=== PATIENT | female | born 1950 | race Hispanic/Latino ===

== ENCOUNTER 2017-08-12 11:24 | Emergency (ER) | payer MEDICARE ==
[~2017-08-12 11:24] MED LIST: ASPI-555 PO; ATOR20TA65 PO; FOLI1TAB85 PO; GABA300S PO; LEVO50TA11 PO; MIDO10TA PO; SEVE800T7 PO; VIT E PO
[2017-08-12] MEDS ORDERED: DEXAMETHASONE SOD PHOSPHATE 10MG/ML 1ML VIAL ONE (12:35)
[2017-08-12] MEDS ORDERED: ACETAMINOPHEN-CODEINE 300/30MG TAB ONE (12:36)
== END 2017-08-12 14:18 | disposition home or self-care (01) ==
LOC: EDH 11:24
DX: M25.512 Pain in left shoulder (principal); I12.0 Hypertensive chronic kidney disease with stage 5 chronic kidney disease or end stage renal disease; E11.22 Type 2 diabetes mellitus with diabetic chronic kidney disease; N18.6 End stage renal disease; F41.9 Anxiety disorder, unspecified; Z88.6 Allergy status to analgesic agent; Z99.2 Dependence on renal dialysis; Z95.1 Presence of aortocoronary bypass graft
CPT/HCPCS: 73030; 96372; 99284; J1100

== ENCOUNTER 2017-08-14 12:45 | Day surgery (SDC) | payer MEDICARE ==
[~2017-08-14] VITALS: Ht 147.3 cm; Wt 96.9 kg
[2017-08-14 13:15] VITALS: BP_SYST 142; BP_DIAS 51; BP_DIAS 57
[2017-08-14 13:35] LABS: BASOPHILS % (AUTO) 0.5 % (0.0-5.0); EOSINOPHILS % (AUTO) 0.2 % (0.0-8.0); HEMATOCRIT 32.9 % (36-48); LYMPHOCYTES % (AUTO) 5.6 % (21.0-51.0); MEAN CORPUSCULAR HGB CONC 33.2 g/dL (32.0-36.0); MEAN CORPUSCULAR VOLUME 99.6 fL (79-99); MONOCYTES % (AUTO) 7.4 % (3.0-13.0); NEUTROPHILS % (AUTO) 86.3 % (40.0-77.0); PLATELET COUNT (AUTO) 248 K/uL (130-400); RED BLOOD CELL COUNT(AUTO) 3.31 MIL/uL (4.00-5.50); RED CELL DISTRIBUTION WIDTH 14.7 % (11.0-15.5); WHITE BLOOD COUNT (AUTO) 10.9 K/uL (4.8-10.8)
[2017-08-14 13:50] LABS: ALBUMIN 2.8 g/dL (3.5-5.0); BILIRUBIN,TOTAL 0.6 mg/dL (0.2-1.0); POTASSIUM 5.3 mmol/L (3.5-5.1); TOTAL PROTEIN, SERUM 8.8 g/dL (6.0-8.3)
[2017-08-14 13:52] LABS: CREATININE 10.4 mg/dL (0.5-1.5)
[2017-08-14 13:58] LABS: INR 0.99 (0.85-1.15); PROTHROMBIN TIME 10.4 SEC (9.6-11.6)
[2017-08-14] MEDS ORDERED: LEVO75TA10 PO (14:03)
[2017-08-14] MEDS ORDERED: GABA-531 PO (14:03)
[2017-08-14] MEDS ORDERED: ACET-2743 PO (14:03)
[2017-08-14] MEDS ORDERED: MIDO10TA PO (14:03)
[2017-08-14] MEDS ORDERED: TYL3 PO (14:03)
[2017-08-14] MEDS ORDERED: SEVE800T7 PO (14:03)
[2017-08-14] MEDS ORDERED: LIDOCAINE HCL 1% MDV 50ML VIAL ONE (14:04)
[2017-08-14] MEDS ORDERED: SODIUM CHLORIDE 0.9% 1000ML 1,000 ML IV ONE (14:14)
[2017-08-14] MEDS ORDERED: PANT40TA PO (14:16)
[2017-08-14] MEDS ORDERED: ISOVUE-370 50ML VIAL IV ONE (14:28)
[2017-08-14] MEDS ORDERED: MIDAZOLAM HCL 1 MG/ML 2ML VIAL ONE (14:40)
[2017-08-14] MEDS ORDERED: MORPHINE SULFATE 4 MG/1ML SYG ONE (14:42)
[2017-08-14 15:25] VITALS: BP 118/53
[2017-08-14 15:34] VITALS: BP 118/53
[2017-08-14 15:40] VITALS: BP 118/53
[2017-08-14 16:15] VITALS: BP 118/53
== END 2017-08-14 16:30 | disposition home or self-care (01) ==
LOC: DAH 12:45
PROVIDERS: ATTEND Internal Medicine Nephrology
DX: T82.49XA Other complication of vascular dialysis catheter, initial encounter (principal)
CPT/HCPCS: 36415; 36581; 36596; 75902; 80053; 85025; 85610; A4606; C1725; C1750; C1769; J1644; J2270; J3490; J7030; Q9967; 75820; J2250

== ENCOUNTER 2017-08-26 14:00 | Inpatient (IN) | payer MEDICARE ==
[~2017-08-26] VITALS: Ht 147.3 cm; Wt 92.5 kg
[~2017-08-26 14:00] MED LIST changes: +ACET-2743 PO; +GABA-531 PO; -GABA300S PO; -LEVO50TA11 PO; +LEVO75TA10 PO; +PANT40TA PO; +TYL3 PO
[2017-08-26 16:07] LABS: BASOPHILS % (AUTO) 0.2 % (0.0-5.0); EOSINOPHILS % (AUTO) 0.2 % (0.0-8.0); HEMATOCRIT 30.8 % (36-48); LYMPHOCYTES % (AUTO) 2.6 % (21.0-51.0); MEAN CORPUSCULAR HEMOGLOBIN 32.3 pg (27.0-33.0); MEAN CORPUSCULAR HGB CONC 33.2 g/dL (32.0-36.0); MEAN CORPUSCULAR VOLUME 97.3 fL (79-99); MONOCYTES % (AUTO) 6.5 % (3.0-13.0); NEUTROPHILS % (AUTO) 90.5 % (40.0-77.0); NUCLEATED RED BLOOD CELLS 0.1 % (0.0-0.19); PLATELET COUNT (AUTO) 195 K/uL (130-400); RED BLOOD CELL COUNT(AUTO) 3.17 MIL/uL (4.00-5.50); RED CELL DISTRIBUTION WIDTH 15.3 % (11.0-15.5); WHITE BLOOD COUNT (AUTO) 14.2 K/uL (4.8-10.8)
[2017-08-26 16:17] LABS: INR 1.18 (0.85-1.15); PARTIAL THROMBOPLASTIN TIME 36.1 SEC (26.3-35.5); PROTHROMBIN TIME 12.3 SEC (9.6-11.6)
[2017-08-26 16:30] LABS: CREATINE KINASE MB 1.5 ng/mL (0.5-3.6)
[2017-08-26 16:42] LABS: CRP QUANTITATIVE 406.3 mg/L (0.00-9.0)
[2017-08-26 16:59] LABS: CREATININE 7.4 mg/dL (0.5-1.5); POTASSIUM 4.3 mmol/L (3.5-5.1)
[2017-08-26 17:08] LABS: ALBUMIN 2.3 g/dL (3.5-5.0); BILIRUBIN,TOTAL 0.4 mg/dL (0.2-1.0); TOTAL PROTEIN, SERUM 7.9 g/dL (6.0-8.3)
[2017-08-26] MEDS ORDERED: ZOSYN 3.375GM+NS 50ML 50 ML IV ONE (19:44)
[2017-08-26] MEDS ORDERED: VANCOMYCIN 1GM+NS 250ML 250 ML IV ONE (19:57)
[2017-08-26] MEDS ORDERED: SODIUM CHLORIDE 0.9% 10 ML VIAL IVP SCH (20:15)
[2017-08-26] MEDS ORDERED: ONDANSETRON HCL 4 MG/2 ML VIAL IVP PRN (20:15)
[2017-08-26 21:30] VITALS: BP 128/67
[2017-08-26] MEDS ORDERED: GLUCAGON 1MG KIT 1 MG ML IM PRN (22:15)
[2017-08-26] MEDS ORDERED: DEXTROSE 50%-WATER 50 ML DISP.SYRIN IV PRN (22:15)
[2017-08-26 23:00] VITALS: BP 127/61
[2017-08-27 03:00] VITALS: BP 115/54
[2017-08-27 06:17] LABS: MEAN CORPUSCULAR HEMOGLOBIN 32.1 pg (27.0-33.0); MEAN CORPUSCULAR HGB CONC 33.2 g/dL (32.0-36.0); MEAN CORPUSCULAR VOLUME 96.7 fL (79-99); PLATELET COUNT (AUTO) 192 K/uL (130-400); WHITE BLOOD COUNT (AUTO) 12.1 K/uL (4.8-10.8)
[2017-08-27 06:41] LABS: ALBUMIN 1.9 g/dL (3.5-5.0); BILIRUBIN,TOTAL 0.5 mg/dL (0.2-1.0); POTASSIUM 4.5 mmol/L (3.5-5.1); TOTAL PROTEIN, SERUM 7.1 g/dL (6.0-8.3)
[2017-08-27 06:59] LABS: CREATININE 8.4 mg/dL (0.5-1.5)
[2017-08-27 08:00] VITALS: BP 133/64
[2017-08-27] MEDS: FAMOTIDINE/PF 20 MG/2 ML VIAL IV SCH (08:19)
[2017-08-27] MEDS: INSULIN HUMULIN R 100 UNIT/ML 3ML SQ SCH ×4 (08:21→22:29)
[2017-08-27] MEDS ORDERED: ZOSYN 3.375GM+NS 50ML 50 ML IV SCH (09:00)
[2017-08-27] MEDS ORDERED: VANCOMYCIN PROTOCOL PER PHARMACY IV SCH (09:15)
[2017-08-27] MEDS ORDERED: COMPOUND IV REFRIGERATED 1 EACH IVSOLN MISC PRN (09:15)
[2017-08-27] MEDS: ZOSYN 3.375GM+NS 50ML 50 ML IV SCH ×2 (09:19→20:20)
[2017-08-27] MEDS: ACETAMINOPHEN 325 MG TAB PO PRN ×2 (09:33→20:20)
[2017-08-27] MEDS ORDERED: VANCOMYCIN 1.5 GM in SODIUM CHLORIDE 0.9% 250 ML IV SCH (10:00)
[2017-08-27 11:00] VITALS: BP 108/71
[2017-08-27] MEDS: HEPARIN SODIUM 5000UNIT/ML 1ML VIAL SQ SCH ×2 (11:50→22:30)
[2017-08-27 16:00] VITALS: BP 103/72
[2017-08-27 19:20] VITALS: BP 126/74
[2017-08-28] VITALS: BP 104/44
[2017-08-28 04:00] VITALS: BP 108/55
[2017-08-28] MEDS: ACETAMINOPHEN 325 MG TAB PO PRN ×3 (05:49→21:19)
[2017-08-28] MEDS: INSULIN HUMULIN R 100 UNIT/ML 3ML SQ SCH ×4 (06:21→21:00)
[2017-08-28 08:00] VITALS: BP 108/42
[2017-08-28] MEDS ORDERED: MIDODRINE HCL 5 MG TABLET ONE (09:39)
[2017-08-28] MEDS ORDERED: VANCOMYCIN 1.5 GM in SODIUM CHLORIDE 0.9% 250 ML IV SCH (09:58)
[2017-08-28] MEDS ORDERED: SODIUM CHLORIDE 0.9% 1000ML 1,000 ML IV PRN (10:00)
[2017-08-28] MEDS ORDERED: 0.9% SODIUM CHLORIDE 250 ML IV BAG IV PRN (10:00)
[2017-08-28] MEDS: HEPARIN SODIUM 5000UNIT/ML 1ML VIAL SQ SCH ×2 (10:45→23:53)
[2017-08-28 11:00] VITALS: BP 144/52
[2017-08-28] MEDS: ZOSYN 3.375GM+NS 50ML 50 ML IV SCH ×2 (13:16→21:18)
[2017-08-28] MEDS: FAMOTIDINE/PF 20 MG/2 ML VIAL IV SCH (13:16)
[2017-08-28] MEDS: MIDODRINE HCL 5 MG TABLET PO SCH ×2 (13:18→21:18)
[2017-08-28] MEDS ORDERED: OCTYL 2-CYANOACRYLATE 1 EACH TP ONE (13:57)
[2017-08-28] MEDS ORDERED: LIDOCAINE 1%-EPI 1:100,000 20 ML VIAL IJ ONE (13:58)
[2017-08-28] MEDS ORDERED: LIDOCAINE HCL 2% 20ML ONE (13:58)
[2017-08-28 16:00] VITALS: BP 128/69
[2017-08-28 19:00] VITALS: BP 107/57
[2017-08-29] VITALS (7 sets, daily range): BP systolic 95–161; BP diastolic 56–72
[2017-08-29 05:13] LABS: HEMATOCRIT 25.9 % (36-48); MEAN CORPUSCULAR HEMOGLOBIN 31.8 pg (27.0-33.0); MEAN CORPUSCULAR HGB CONC 32.8 g/dL (32.0-36.0); MEAN CORPUSCULAR VOLUME 96.9 fL (79-99); NUCLEATED RED BLOOD CELLS 0.1 % (0.0-0.19); PLATELET COUNT (AUTO) 166 K/uL (130-400); RED BLOOD CELL COUNT(AUTO) 2.67 MIL/uL (4.00-5.50); WHITE BLOOD COUNT (AUTO) 12.6 K/uL (4.8-10.8)
[2017-08-29 05:22] LABS: POTASSIUM 5.4 mmol/L (3.5-5.1)
[2017-08-29 05:27] LABS: CREATININE 10.6 mg/dL (0.5-1.5)
[2017-08-29 05:28] LABS: EOSINOPHILS % (MANUAL) 3 % (1-6); LYMPHOCYTES % (MANUAL) 15 % (22-44); MAN.DIFF COMMENT-IMPRESSION MANUAL DIF; MONOCYTES % (MANUAL) 9 % (2-9); SEGMENTED NEUTROPHILS % 73 % (40-70)
[2017-08-29 05:29] LABS: PLATELET MORPHOLOGY COMMENT ADEQUATE
[2017-08-29] MEDS: INSULIN HUMULIN R 100 UNIT/ML 3ML SQ SCH ×4 (07:27→21:00)
[2017-08-29] MEDS: MIDODRINE HCL 5 MG TABLET PO SCH ×3 (08:42→21:00)
[2017-08-29] MEDS: ZOSYN 3.375GM+NS 50ML 50 ML IV SCH (08:43)
[2017-08-29] MEDS: ACETAMINOPHEN 325 MG TAB PO PRN ×2 (08:43→18:26)
[2017-08-29] MEDS: FAMOTIDINE/PF 20 MG/2 ML VIAL IV SCH (08:43)
[2017-08-29] MEDS ORDERED: SODIUM POLYSTYRENE SULFONATE 15 GM/60 ML ML PO SCH (09:15)
[2017-08-29] MEDS: HEPARIN SODIUM 5000UNIT/ML 1ML VIAL SQ SCH ×2 (10:32→22:35)
[2017-08-30] VITALS (11 sets, daily range): BP systolic 95–145; BP diastolic 41–81
[2017-08-30 05:11] LABS: HEMATOCRIT 24.7 % (36-48); MEAN CORPUSCULAR HEMOGLOBIN 32.6 pg (27.0-33.0); MEAN CORPUSCULAR HGB CONC 34.2 g/dL (32.0-36.0); MEAN CORPUSCULAR VOLUME 95.4 fL (79-99); PLATELET COUNT (AUTO) 174 K/uL (130-400); RED BLOOD CELL COUNT(AUTO) 2.59 MIL/uL (4.00-5.50); RED CELL DISTRIBUTION WIDTH 15.3 % (11.0-15.5); WHITE BLOOD COUNT (AUTO) 9.3 K/uL (4.8-10.8)
[2017-08-30 05:24] LABS: POTASSIUM 5.1 mmol/L (3.5-5.1)
[2017-08-30 05:31] LABS: CREATININE 11.7 mg/dL (0.5-1.5)
[2017-08-30] MEDS: INSULIN HUMULIN R 100 UNIT/ML 3ML SQ SCH ×4 (07:30→23:34)
[2017-08-30] MEDS: FAMOTIDINE/PF 20 MG/2 ML VIAL IV SCH (07:49)
[2017-08-30] MEDS: MIDODRINE HCL 5 MG TABLET PO SCH ×3 (07:49→23:21)
[2017-08-30] MEDS: HEPARIN SODIUM 5000UNIT/ML 1ML VIAL SQ SCH ×2 (07:49→23:32)
[2017-08-30] MEDS ORDERED: HEPARIN SODIUM 1000UNIT/ML 10ML VIAL ONE (08:48)
[2017-08-30] MEDS ORDERED: LIDOCAINE HCL 2% 20ML ONE (08:48)
[2017-08-30] MEDS ORDERED: EPOETIN ALFA 20,000 UNIT/ML VIAL SQ SCH (09:45)
[2017-08-30] MEDS ORDERED: ALBUMIN (HUMAN) 25% 100 ML IV PRN (11:30)
[2017-08-30] MEDS: HEPARIN SODIUM 5000UNIT/ML 1ML VIAL IJ PRN (14:09)
[2017-08-31 05:13] VITALS: BP 124/40
[2017-08-31] MEDS: INSULIN HUMULIN R 100 UNIT/ML 3ML SQ SCH ×4 (05:49→22:41)
[2017-08-31 06:14] LABS: HEMATOCRIT 25.1 % (36-48); MEAN CORPUSCULAR HEMOGLOBIN 33.1 pg (27.0-33.0); MEAN CORPUSCULAR HGB CONC 35.2 g/dL (32.0-36.0); MEAN CORPUSCULAR VOLUME 94.1 fL (79-99); PLATELET COUNT (AUTO) 213 K/uL (130-400); RED BLOOD CELL COUNT(AUTO) 2.67 MIL/uL (4.00-5.50); RED CELL DISTRIBUTION WIDTH 14.8 % (11.0-15.5); WHITE BLOOD COUNT (AUTO) 8.4 K/uL (4.8-10.8)
[2017-08-31 06:25] LABS: POTASSIUM 3.9 mmol/L (3.5-5.1)
[2017-08-31 06:30] LABS: CREATININE 8.2 mg/dL (0.5-1.5)
[2017-08-31 07:04] LABS: LYMPHOCYTES % (MANUAL) 12 % (22-44); MONOCYTES % (MANUAL) 8 % (2-9); SEGMENTED NEUTROPHILS % 80 % (40-70)
[2017-08-31 07:08] LABS: MAN.DIFF COMMENT-IMPRESSION MANUAL DIFFERENTIAL; PLATELET MORPHOLOGY COMMENT ADEQUATE
[2017-08-31 08:00] VITALS: BP 115/51
[2017-08-31] MEDS: FAMOTIDINE/PF 20 MG/2 ML VIAL IV SCH (09:52)
[2017-08-31] MEDS: MIDODRINE HCL 5 MG TABLET PO SCH ×3 (09:52→22:37)
[2017-08-31] MEDS: ACETAMINOPHEN 325 MG TAB PO PRN (10:04)
[2017-08-31 11:42] VITALS: BP 118/53
[2017-08-31] MEDS: HEPARIN SODIUM 5000UNIT/ML 1ML VIAL SQ SCH ×2 (12:41→22:40)
[2017-08-31] MEDS ORDERED: PHARMACY COMMUNICATION MISC SCH (14:45)
[2017-08-31] MEDS ORDERED: KETOROLAC TROMETHAMINE 15MG/ML IV SCH (15:00)
[2017-08-31 16:00] VITALS: BP 159/84
[2017-08-31] MEDS ORDERED: GENTAMICIN PROTOCOL PER PHARMACY IV SCH (16:15)
[2017-08-31] MEDS: GENTAMICIN 80 MG/NS 100 ML PB 100 ML IV SCH (18:27)
[2017-08-31 19:15] VITALS: BP 117/61
[2017-09-01 00:15] VITALS: BP 117/84
[2017-09-01 04:15] VITALS: BP 140/54
[2017-09-01] MEDS: HEPARIN SODIUM 5000UNIT/ML 1ML VIAL IJ PRN (04:39)
[2017-09-01 05:02] LABS: BASOPHILS % (AUTO) 0.9 % (0.0-5.0); HEMATOCRIT 28.2 % (36-48); LYMPHOCYTES % (AUTO) 16.2 % (21.0-51.0); MEAN CORPUSCULAR HEMOGLOBIN 31.7 pg (27.0-33.0); MEAN CORPUSCULAR HGB CONC 33.2 g/dL (32.0-36.0); MEAN CORPUSCULAR VOLUME 95.3 fL (79-99); MONOCYTES % (AUTO) 7.6 % (3.0-13.0); NEUTROPHILS % (AUTO) 73.3 % (40.0-77.0); NUCLEATED RED BLOOD CELLS 0.1 % (0.0-0.19); PLATELET COUNT (AUTO) 248 K/uL (130-400); RED BLOOD CELL COUNT(AUTO) 2.96 MIL/uL (4.00-5.50); RED CELL DISTRIBUTION WIDTH 15.4 % (11.0-15.5); WHITE BLOOD COUNT (AUTO) 7.1 K/uL (4.8-10.8)
[2017-09-01 05:15] LABS: CREATININE 5.2 mg/dL (0.5-1.5)
[2017-09-01 05:18] LABS: POTASSIUM 2.9 mmol/L (3.5-5.1)
[2017-09-01] MEDS: INSULIN HUMULIN R 100 UNIT/ML 3ML SQ SCH ×4 (06:45→21:00)
[2017-09-01 08:00] VITALS: BP 101/44
[2017-09-01] MEDS: MIDODRINE HCL 5 MG TABLET PO SCH ×3 (10:30→21:52)
[2017-09-01] MEDS: FAMOTIDINE/PF 20 MG/2 ML VIAL IV SCH (10:31)
[2017-09-01 12:00] VITALS: BP 143/63
[2017-09-01] MEDS: HEPARIN SODIUM 5000UNIT/ML 1ML VIAL SQ SCH ×2 (13:14→22:07)
[2017-09-01] MEDS: ACETAMINOPHEN 325 MG TAB PO PRN (15:58)
[2017-09-01 16:00] VITALS: BP 144/66
[2017-09-01 20:38] VITALS: BP 110/57
[2017-09-02 00:36] VITALS: BP 107/71
[2017-09-02] MEDS: ACETAMINOPHEN 325 MG TAB PO PRN ×2 (02:30→09:12)
[2017-09-02 06:15] VITALS: BP 117/56
[2017-09-02 06:31] LABS: HEMATOCRIT 24.2 % (36-48); MEAN CORPUSCULAR HEMOGLOBIN 32.2 pg (27.0-33.0); MEAN CORPUSCULAR HGB CONC 33.1 g/dL (32.0-36.0); MEAN CORPUSCULAR VOLUME 97.5 fL (79-99); NUCLEATED RED BLOOD CELLS 0.1 % (0.0-0.19); PLATELET COUNT (AUTO) 244 K/uL (130-400); RED BLOOD CELL COUNT(AUTO) 2.48 MIL/uL (4.00-5.50); RED CELL DISTRIBUTION WIDTH 15.2 % (11.0-15.5); WHITE BLOOD COUNT (AUTO) 6.9 K/uL (4.8-10.8)
[2017-09-02 06:48] LABS: POTASSIUM 3.6 mmol/L (3.5-5.1)
[2017-09-02 07:05] LABS: CREATININE 8.2 mg/dL (0.5-1.5)
[2017-09-02] MEDS: INSULIN HUMULIN R 100 UNIT/ML 3ML SQ SCH ×4 (07:30→21:12)
[2017-09-02 08:29] VITALS: BP 128/64
[2017-09-02] MEDS: MIDODRINE HCL 5 MG TABLET PO SCH ×3 (09:05→21:10)
[2017-09-02] MEDS: FAMOTIDINE/PF 20 MG/2 ML VIAL IV SCH (09:05)
[2017-09-02 12:07] VITALS: BP 139/65
[2017-09-02] MEDS: HEPARIN SODIUM 5000UNIT/ML 1ML VIAL SQ SCH ×2 (13:40→23:32)
[2017-09-02 15:25] VITALS: BP 105/48
[2017-09-02 19:15] VITALS: BP 149/66
[2017-09-03] VITALS (7 sets, daily range): BP systolic 121–162; BP diastolic 56–78
[2017-09-03 06:10] LABS: BASOPHILS % (AUTO) 0.8 % (0.0-5.0); HEMATOCRIT 24.6 % (36-48); LYMPHOCYTES % (AUTO) 8.7 % (21.0-51.0); MEAN CORPUSCULAR HEMOGLOBIN 32.5 pg (27.0-33.0); MEAN CORPUSCULAR HGB CONC 34.1 g/dL (32.0-36.0); MEAN CORPUSCULAR VOLUME 95.5 fL (79-99); MONOCYTES % (AUTO) 6.3 % (3.0-13.0); NEUTROPHILS % (AUTO) 83.2 % (40.0-77.0); PLATELET COUNT (AUTO) 295 K/uL (130-400); RED BLOOD CELL COUNT(AUTO) 2.58 MIL/uL (4.00-5.50); RED CELL DISTRIBUTION WIDTH 15.5 % (11.0-15.5); WHITE BLOOD COUNT (AUTO) 8.7 K/uL (4.8-10.8)
[2017-09-03 06:24] LABS: INR 0.94 (0.85-1.15); PARTIAL THROMBOPLASTIN TIME 34.1 SEC (26.3-35.5); PROTHROMBIN TIME 9.9 SEC (9.6-11.6)
[2017-09-03 06:25] LABS: GENTAMICIN,TROUGH 0.8 mcg/mL (0.0-2.0); POTASSIUM 3.7 mmol/L (3.5-5.1)
[2017-09-03 06:29] LABS: CREATININE 9.7 mg/dL (0.5-1.5)
[2017-09-03] MEDS: INSULIN HUMULIN R 100 UNIT/ML 3ML SQ SCH ×4 (07:30→21:57)
[2017-09-03] MEDS: MIDODRINE HCL 5 MG TABLET PO SCH ×3 (08:20→21:49)
[2017-09-03] MEDS: GENTAMICIN 80 MG/NS 100 ML PB 100 ML IV SCH (08:20)
[2017-09-03] MEDS: ACETAMINOPHEN 325 MG TAB PO PRN ×2 (08:21→14:59)
[2017-09-03] MEDS: FAMOTIDINE/PF 20 MG/2 ML VIAL IV SCH (08:21)
[2017-09-03] MEDS: HEPARIN SODIUM 5000UNIT/ML 1ML VIAL SQ SCH ×2 (12:57→22:38)
[2017-09-04 03:27] VITALS: BP 130/51
[2017-09-04 04:32] LABS: HEMATOCRIT 24.3 % (36-48); MEAN CORPUSCULAR HEMOGLOBIN 33.4 pg (27.0-33.0); MEAN CORPUSCULAR HGB CONC 34.5 g/dL (32.0-36.0); MEAN CORPUSCULAR VOLUME 96.8 fL (79-99); PLATELET COUNT (AUTO) 310 K/uL (130-400); RED BLOOD CELL COUNT(AUTO) 2.51 MIL/uL (4.00-5.50); RED CELL DISTRIBUTION WIDTH 15.7 % (11.0-15.5); WHITE BLOOD COUNT (AUTO) 7.8 K/uL (4.8-10.8)
[2017-09-04 04:41] LABS: BAND NEUTROPHILS % (MANUAL) 3 % (0-2); BASOPHILS % (MANUAL) 1 % (0-2); EOSINOPHILS % (MANUAL) 7 % (1-6); LYMPHOCYTES % (MANUAL) 10 % (22-44); MONOCYTES % (MANUAL) 6 % (2-9); SEGMENTED NEUTROPHILS % 73 % (40-70)
[2017-09-04 04:42] LABS: MAN.DIFF COMMENT-IMPRESSION MANUAL DIFFERENTIAL; PHOSPHORUS 8.4 mg/dL (2.5-4.9); PLATELET MORPHOLOGY COMMENT ADEQUATE
[2017-09-04 04:43] LABS: INR 0.94 (0.85-1.15); PARTIAL THROMBOPLASTIN TIME 35.2 SEC (26.3-35.5); PROTHROMBIN TIME 9.9 SEC (9.6-11.6)
[2017-09-04 04:44] LABS: CREATININE 11.1 mg/dL (0.5-1.5)
[2017-09-04] MEDS: INSULIN HUMULIN R 100 UNIT/ML 3ML SQ SCH ×3 (05:44→16:24)
[2017-09-04] MEDS ORDERED: LIDOCAINE HCL 2% 20ML ONE (07:42)
[2017-09-04 08:24] VITALS: BP 119/64
[2017-09-04] MEDS ORDERED: ISOVUE-300 100 ML VIAL IV ONE (08:34)
[2017-09-04 09:40] VITALS: BP 141/73
[2017-09-04] MEDS: FAMOTIDINE/PF 20 MG/2 ML VIAL IV SCH (10:13)
[2017-09-04] MEDS: MIDODRINE HCL 5 MG TABLET PO SCH ×2 (10:18→14:00)
[2017-09-04] MEDS: ACETAMINOPHEN 325 MG TAB PO PRN (10:21)
[2017-09-04] MEDS: HEPARIN SODIUM 5000UNIT/ML 1ML VIAL SQ SCH (10:45)
[2017-09-04 11:45] VITALS: BP 134/64
[2017-09-04 11:48] VITALS: BP 134/64
[2017-09-04] MEDS ORDERED: BALS60OI TP (14:19)
[2017-09-04 16:48] VITALS: BP 151/85
== END 2017-09-04 18:10 | disposition home or self-care (01) | DRG 871 ==
LOC: EDH 14:00 → EDHIP 19:15 → 3BH 21:23 → 3CH 09-01 16:46 → 3BH 09-02 08:08
PROVIDERS: ADMIT Internal Medicine Nephrology; ATTEND Internal Medicine Nephrology
PROC: 02PAX3Z Removal of Infusion Device from Heart, External Approach (ICD-10-PCS; principal; 2017-08-28)
PROC: 5A1D70Z Performance of Urinary Filtration, Intermittent, Less than 6 Hours Per Day (ICD-10-PCS; 2017-08-28)
PROC: 5A1D70Z Performance of Urinary Filtration, Intermittent, Less than 6 Hours Per Day (ICD-10-PCS; 2017-09-01)
PROC: 02H633Z Insertion of Infusion Device into Right Atrium, Percutaneous Approach (ICD-10-PCS; 2017-09-04)
PROC: B244ZZZ Ultrasonography of Right Heart (ICD-10-PCS; 2017-09-04)
PROC: 5A1D70Z Performance of Urinary Filtration, Intermittent, Less than 6 Hours Per Day (ICD-10-PCS; 2017-09-04)
DX: A41.9 Sepsis, unspecified organism (principal); N18.6 End stage renal disease; G93.40 Encephalopathy, unspecified; T85.79XA Infection and inflammatory reaction due to other internal prosthetic devices, implants and grafts, initial encounter; I12.0 Hypertensive chronic kidney disease with stage 5 chronic kidney disease or end stage renal disease; Z68.41 Body mass index [BMI] 40.0-44.9, adult; E11.22 Type 2 diabetes mellitus with diabetic chronic kidney disease; E78.5 Hyperlipidemia, unspecified; I25.10 Atherosclerotic heart disease of native coronary artery without angina pectoris; M19.90 Unspecified osteoarthritis, unspecified site; B95.2 Enterococcus as the cause of diseases classified elsewhere; B96.89 Other specified bacterial agents as the cause of diseases classified elsewhere; D63.1 Anemia in chronic kidney disease; E03.9 Hypothyroidism, unspecified; E11.21 Type 2 diabetes mellitus with diabetic nephropathy; E66.01 Morbid (severe) obesity due to excess calories; E78.00 Pure hypercholesterolemia, unspecified; E87.6 Hypokalemia; Y83.8 Other surgical procedures as the cause of abnormal reaction of the patient, or of later complication, without mention of misadventure at the time of the procedure; Z95.1 Presence of aortocoronary bypass graft; Z88.8 Allergy status to other drugs, medicaments and biological substances; Z99.2 Dependence on renal dialysis; Z83.3 Family history of diabetes mellitus; Z82.49 Family history of ischemic heart disease and other diseases of the circulatory system
CPT/HCPCS: 36415; 36556; 36558; 36589; 70450; 71045; 72125; 72170; 73200; 77001; 80048; 80053; 80170; 82140; 82550; 82553; 82948; 83605; 84100; 84484; 85025; 85027; 85610; 85651; 85730; 86140; 87040; 87070; 87076; 87186; 87633; 90935; 93005; 93306; 97039; C1750; C1752; C1769; J0885; J1580; J1644; J1815; J1885; J2543; J3370; J3490; J7030; J7070; P9046; Q9967

== ENCOUNTER 2018-02-20 08:48 | Emergency (ER) | payer MEDICARE ==
[~2018-02-20 08:48] MED LIST changes: +BALS60OI TP
== END 2018-02-20 09:49 | disposition home or self-care (01) ==
LOC: EDH 08:48
DX: S80.02XA Contusion of left knee, initial encounter (principal); I25.10 Atherosclerotic heart disease of native coronary artery without angina pectoris; E11.22 Type 2 diabetes mellitus with diabetic chronic kidney disease; N18.6 End stage renal disease; E07.9 Disorder of thyroid, unspecified; E78.5 Hyperlipidemia, unspecified; Z88.6 Allergy status to analgesic agent; Z99.2 Dependence on renal dialysis; Z95.1 Presence of aortocoronary bypass graft; Z87.891 Personal history of nicotine dependence; W18.39XA Other fall on same level, initial encounter; Y93.01 Activity, walking, marching and hiking; Y92.89 Other specified places as the place of occurrence of the external cause; Y99.8 Other external cause status
CPT/HCPCS: 73562

== ENCOUNTER → 2019-12-05 | Outpatient (CLI) | payer MEDICARE ==
[~2019-12-05] MED LIST changes: -ASPI-555 PO; +ASPI-556 PO
== END | disposition home or self-care (01) ==
LOC: SHCH 11:16
PROVIDERS: ATTEND Internal Medicine Cardiovascular Disease
DX: I77.1 Stricture of artery (principal)
CPT/HCPCS: 93931

== ENCOUNTER 2020-12-21 06:15 | Day surgery (SDC) | payer MEDICARE ==
[~2020-12-21] VITALS: Ht 149.9 cm; Wt 85.4 kg
[~2020-12-21 06:15] MED LIST changes: -ACET-2743 PO; -BALS60OI TP; +GABA-529 PO; -GABA-531 PO; +LEVO-170 PO; -LEVO75TA10 PO; -TYL3 PO; -VIT E PO; +VITA-395 PO
[2020-12-21] MEDS ORDERED: 0.9%NACL 1000ML 1,000 ML IV ONE (06:19)
[2020-12-21 07:00] VITALS: BP 86/37
[2020-12-21 07:31] LABS: CREATININE 4.8 mg/dL (0.5-1.5); POTASSIUM 3.9 mmol/L (3.5-5.1)
[2020-12-21] MEDS ORDERED: EPHEDRINE SULFATE 50 MG/ML AMPULE ONE (08:07)
[2020-12-21 08:15] VITALS: BP 77/16
[2020-12-21 08:20] VITALS: BP 77/23
[2020-12-21 08:25] VITALS: BP 93/24
== END 2020-12-21 08:48 | disposition home or self-care (01) ==
LOC: DAH 06:15 → ENDO 06:15
PROVIDERS: ATTEND Internal Medicine Gastroenterology
DX: Z12.11 Encounter for screening for malignant neoplasm of colon (principal); Z20.822 Contact with and (suspected) exposure to COVID-19; K63.5 Polyp of colon; K57.30 Diverticulosis of large intestine without perforation or abscess without bleeding; K21.9 Gastro-esophageal reflux disease without esophagitis; E11.22 Type 2 diabetes mellitus with diabetic chronic kidney disease; I12.0 Hypertensive chronic kidney disease with stage 5 chronic kidney disease or end stage renal disease; N18.6 End stage renal disease; E78.5 Hyperlipidemia, unspecified; I25.10 Atherosclerotic heart disease of native coronary artery without angina pectoris; Z98.890 Other specified postprocedural states; Z88.6 Allergy status to analgesic agent; Z88.8 Allergy status to other drugs, medicaments and biological substances; Z95.1 Presence of aortocoronary bypass graft; Z99.2 Dependence on renal dialysis
CPT/HCPCS: 36415; 45380; 80048; 87635; 93005; A4215 ×2; A4221; A4222; A4223; A4606; A4620; A4657; A4663; C9803; J3490; J7030

== ENCOUNTER → 2023-08-15 | Outpatient (CLI) | payer MEDICARE ==
[~2023-08-15] MED LIST changes: -ATOR20TA65 PO; +ATOR40TA71 PO; -MIDO10TA PO; +MIDO5TAB4 PO; +SEVE0.8P3 PO; -SEVE800T7 PO
== END | disposition home or self-care (01) ==
LOC: SHCH 14:37
PROVIDERS: ATTEND Internal Medicine Cardiovascular Disease
DX: I08.0 Rheumatic disorders of both mitral and aortic valves (principal); I25.10 Atherosclerotic heart disease of native coronary artery without angina pectoris
CPT/HCPCS: 93306